=== PATIENT | male | born 1965 | race Two or more races ===

== ENCOUNTER 2018-01-29 17:59 | Emergency (ER) | payer MEDICAID ==
[~2018-01-29] VITALS: Ht 177.8 cm; Wt 77.1 kg
--- NOTE | 2018-01-29 18:15 | NUR ---
PT BIB SON C/O R GROIN PAIN AND DYSURIA WITH PAIN RADIATING TO R FLANK X1WK. DENIES N/V/D. DENIES HEMATURIA. RESP EVEN UNLABORED. SKIN WARM DRY.
[2018-01-29 18:42] LABS: APPEARANCE,URINE Clear (CLEAR); BILIRUBIN,URINE Negative (NEGATIVE); BLOOD, URINE Trace-lysed Ery/uL (NEGATIVE); COLOR,URINE Yellow (YELLOW); KETONES,URINE Negative (NEGATIVE); LEUKOCYTE ESTERASE ,URINE Negative (NEGATIVE); NITRITE, URINE Negative (NEGATIVE); PH,URINE 5.5 (5.0-8.0); PROTEIN,URINE Negative (NEGATIVE); UGLUCOSE Negative (NEGATIVE); UROBILINOGEN,URINE 0.2 EU/dL (0.2)
--- NOTE | 2018-01-29 18:56 | NUR ---
REPORT GIVEN TO JF TAVAREZ FOR ELIZABETH
[2018-01-29 18:57] LABS: BASOPHILS # (AUTO) 0.3 /CMM (0.0-0.2); BASOPHILS % (AUTO) 2.3 % (0.0-2.0); EOSINOPHILS % (AUTO) 2.6 % (0.0-6.0); HEMATOCRIT 44 % (39-51); HEMOGLOBIN 15.5 g/dL (13.5-17.5); LYMPHOCYTES # (AUTO) 4.1 /CMM (0.8-4.8); LYMPHOCYTES % (AUTO) 29.6 % (20.0-44.0); MEAN CORPUSCULAR HGB CONC 36 g/dl (31.0-36.0); MEAN CORPUSCULAR VOLUME 86 fL (80-96); MONOCYTES # (AUTO) 0.8 /CMM (0.1-1.30); MONOCYTES % (AUTO) 5.8 % (2.0-12.0); NEUTROPHILS # (AUTO) 8.1 /CMM (1.8-8.9); NEUTROPHILS % (AUTO) 59.7 % (43.0-81.0); PLATELET COUNT (AUTO) 236 /CMM (150-450); RDW COEFFICIENT OF VARIATION 12.6 (11.5-15.0); RED BLOOD CELL COUNT(AUTO) 5.05 MIL/uL (4.5-6.0); WHITE BLOOD COUNT (AUTO) 13.7 K/uL (4.3-11.0)
[2018-01-29 19:07] LABS: CALCIUM, SERUM 8.4 mg/dL (8.5-10.1); CREATININE 1.2 mg/dL (0.6-1.3); POTASSIUM 3.7 mmol/L (3.5-5.1)
[2018-01-29 19:09] LABS: BACTERIA,URINE Rare /HPF (None Seen); SQUAMOUS EPITHELIAL CELL,UR Few /HPF (None Seen); WBC,URINE 0-2 /HPF (0-3)
[2018-01-29 19:14] LABS: ALBUMIN 3.8 g/dL (3.4-5.0); BILIRUBIN,TOTAL 0.6 mg/dL (0.2-1.0); TOTAL PROTEIN, SERUM 7.5 g/dL (6.4-8.2)
[2018-01-29 19:42] VITALS: BP 130/84
== END 2018-01-29 19:43 | disposition home or self-care (01) ==
LOC: ER 18:03
DX: R10.31 Right lower quadrant pain (principal); E78.00 Pure hypercholesterolemia, unspecified; F17.200 Nicotine dependence, unspecified, uncomplicated
CPT/HCPCS: 36415; 80053-TC; 81000-TC; 85025-TC; A4606; Z7610

== ENCOUNTER 2018-10-04 15:23 | Emergency (ER) | payer MEDICAID ==
[~2018-10-04] VITALS: Ht 170.2 cm; Wt 87.1 kg
[2018-10-04 16:10] LABS: BASOPHILS # (AUTO) 0.1 /CMM (0.0-0.2); BASOPHILS % (AUTO) 0.9 % (0.0-2.0); EOSINOPHILS % (AUTO) 2.1 % (0.0-6.0); HEMATOCRIT 44 % (39-51); HEMOGLOBIN 15.2 g/dL (13.5-17.5); LYMPHOCYTES # (AUTO) 3.6 /CMM (0.8-4.8); LYMPHOCYTES % (AUTO) 28.9 % (20.0-44.0); MEAN CORPUSCULAR HGB CONC 35 g/dl (31.0-36.0); MEAN CORPUSCULAR VOLUME 88 fL (80-96); MONOCYTES # (AUTO) 0.8 /CMM (0.1-1.30); MONOCYTES % (AUTO) 6.7 % (2.0-12.0); NEUTROPHILS # (AUTO) 7.7 /CMM (1.8-8.9); NEUTROPHILS % (AUTO) 61.4 % (43.0-81.0); PLATELET COUNT (AUTO) 213 /CMM (150-450); RED BLOOD CELL COUNT(AUTO) 4.99 MIL/uL (4.5-6.0); WHITE BLOOD COUNT (AUTO) 12.5 K/uL (4.3-11.0)
--- NOTE | 2018-10-04 16:15 | NUR ---
C/O MIDSTERNAL CHEST PAIN X 3 DAYS RADIATING TO LEFT ARM IST DAY. PT AAOX4, VSS. DENIES SOB, DIZZINESS, N/V, WEAKNESS @ THIS TIME. PLACED ON [employer]. PT SEEN & EVAL'D BY DR. CARTWRIGHT, FAMILY @ BS & WILL CONT TO MONITOR.
[2018-10-04 16:28] LABS: CALCIUM, SERUM 8.5 mg/dL (8.5-10.1); CREATININE 0.7 mg/dL (0.6-1.3); POTASSIUM 4.5 mmol/L (3.5-5.1)
[2018-10-04 16:57] LABS: BILIRUBIN,DIRECT 0.1 mg/dL (0.0-0.2); BILIRUBIN,TOTAL 0.4 mg/dL (0.2-1.0)
[2018-10-04 16:58] LABS: ALBUMIN 3.9 g/dL (3.4-5.0); TOTAL PROTEIN, SERUM 7.3 g/dL (6.4-8.2)
--- NOTE | 2018-10-04 16:59 | NUR ---
EPIC CARDIO PAGED BOBBIN FIXER JUANJOSE WATERS THIS PATIENT
[2018-10-04] MEDS ORDERED: HEPARIN INFUSION/D5W 500 ML IV ONE ×2 (17:00→17:03)
[2018-10-04] MEDS ORDERED: HEPARIN SODIUM, PORCINE 5000 UNITS/1 ML VIAL IV ONE (17:00)
--- NOTE | 2018-10-04 17:00 | NUR ---
ADDENDUM: Intravenous End Time Documentation: Heparin drip (25,000 units/D5W [500 cc]) IVPB: start time:1700 PM; end time: 1927PM: IV site: RAC # 20 Port # 1 Note: The heparin drip was infusing while transferred to [facility]
--- NOTE | 2018-10-04 17:00 | NUR ---
ADDENDUM: Intravenous End Time Documentation: Heparin 5000 units IVP - RAC # 20; then followed by a heparin drip; see previous charting
--- NOTE | 2018-10-04 17:00 | NUR ---
HUMAN RESOURCES SUPPORT SPECIALIST WALL STEAMER SEAN PAGEAustin
[2018-10-04] MEDS ORDERED: HEPARIN SODIUM, PORCINE 5000 UNITS/1 ML VIAL ONE (17:03)
--- NOTE | 2018-10-04 17:16 | NUR ---
GIVEN BOLUS 5000 UNITS OF HEPARIN IVP PER ERMD ORDER, PT LILLIAN WELL. DENIES CP, SOB, DIZZINESS, N/V, WEAKNESS, [place] @ THIS TIME. WILL CONT TO MONITOR. FAMILY @ BS.
--- NOTE | 2018-10-04 17:42 | NUR ---
[facility] CALLED,SPOKE WITH VALENTIN TAVAREZ,FACESHEET/EKG AND LABS FAXED TO [phone]
--- NOTE | 2018-10-04 17:56 | NUR ---
VALENTIN TAVAREZ CALLED, WAITING ON DR ASHLEY TO GIVE US A CALL
[2018-10-04 18:01] VITALS: BP 138/90
[2018-10-04] MEDS ORDERED: ATORVASTATIN 40 MG TABLET PO SCH (18:30)
--- NOTE | 2018-10-04 19:26 | NUR ---
REPORT GIVEN TO DI RN @ BS FOR CONT OF CARE. PT EN ROUTE TO [facility] VIA [facility].
--- NOTE | 2018-10-04 19:43 | NUR ---
80 MG OF LIPITOR PO NOT GIVEN.
== END 2018-10-04 19:28 | disposition short-term general hospital (02) ==
LOC: ER 15:25
DX: I21.4 Non-ST elevation (NSTEMI) myocardial infarction (principal); F17.210 Nicotine dependence, cigarettes, uncomplicated; E78.00 Pure hypercholesterolemia, unspecified
CPT/HCPCS: 36415; 71045; 80048; 80076; 83880; 84484; 85025; 85730; 93005 ×2; 96365; 96366; 96376; 99291; A4606; J1644 ×3; Z7610